=== PATIENT | female | born 1990 | race Caucasian/White ===

== ENCOUNTER 2023-05-26 09:15 | Emergency (ER) | payer SELFPAY ==
[~2023-05-26] VITALS: Ht 160 cm; Wt 59.0 kg
[2023-05-26 09:24] VITALS: O2SAT 98
[2023-05-26] MEDS: BACITRACIN ZINC OINT UDPKT TOP ONE (10:30)
[2023-05-26] MEDS: LIDOCAINE HCL/PF 1% 10 MG/ML 5ML VIAL INFIL ONE (10:30)
[2023-05-26] MEDS ORDERED: CEPH500C2 MT (11:25)
[2023-05-26 11:58] VITALS: BP 118/79; PULSE 80; RESP 16; TEMP 98.6
[2023-05-31] MEDS ORDERED: AMOX1TAB16 MT (09:29)
[2023-05-31] MEDS ORDERED: SULF1TAB48 MT (09:29)
[2023-05-31] MEDS ORDERED: HYDR-4001 MT (09:29)
[2023-05-31] MEDS ORDERED: TOPUD PO (09:29)
== END 2023-05-26 11:59 | disposition home or self-care (01) ==
LOC: ER 09:15
DX: N75.0 Cyst of Bartholin's gland (principal)
CPT/HCPCS: 81025; 56420; 99284; J3490; Z7610 ×3